=== PATIENT | male | born 1965 | race Caucasian/White ===

== ENCOUNTER 2018-03-22 13:20 | Observation (INO) | payer OTHER ==
[~2018-03-22] VITALS: Ht 188 cm; Wt 98.2 kg
[2018-03-22 14:14] VITALS: BP 128/88
[2018-03-22] MEDS ORDERED: ACETAMINOPHEN 500 MG TABLET PO PRN (14:15)
[2018-03-22] MEDS ORDERED: ONDANSETRON PF 4 MG/2 ML VIAL. IV PRN (14:15)
[2018-03-22 14:20] LABS: BASO # 0.1 x10^3/uL (0.0-0.2); BASO % 1 % (0-3); EOS # 0.1 x10^3/uL (0.0-0.7); EOS % 1 % (0-3); HEMATOCRIT 48.1 % (39.0-53.0); HEMOGLOBIN 16.6 g/dL (13.0-17.5); LYMPH # 1.4 x10^3/uL (1.0-4.8); LYMPH % 19 % (24-48); MEAN CORPUSCULAR HEMOGLOBIN 31 pg (25-35); MEAN CORPUSCULAR HGB CONC 35 g/dL (31-37); MEAN CORPUSCULAR VOLUME 89 fL (79-100); MONO # 0.5 x10^3/uL (0.0-1.1); MONO % 7 % (0-9); NEUT # 5.2 x10^3uL (1.8-7.7); NEUT % 72 % (31-73); PLATELET COUNT 280 x10^3/uL (140-400); RED BLOOD COUNT 5.41 x10^6/uL (4.30-5.70); RED CELL DISTRIBUTION WIDTH 13.3 % (11.5-14.5); WHITE BLOOD COUNT 7.2 x10^3/uL (4.0-11.0)
[2018-03-22 14:26] LABS: ALBUMIN 3.1 g/dL (3.4-5.0); ALBUMIN/GLOBULIN RATIO 0.7 (1.0-1.7); CALCIUM 9.3 mg/dL (8.5-10.1); CREATININE 1.1 mg/dL (0.7-1.3); TOTAL BILIRUBIN 0.8 mg/dL (0.2-1.0); TOTAL PROTEIN 7.5 g/dL (6.4-8.2)
[2018-03-22] MEDS: IV NORMAL SALINE 1,000ML 1,000 ML IV SCH (14:49)
[2018-03-22 15:50] LABS: BACTERIA,URINE 0 /HPF (0-FEW); BILIRUBIN,URINE NEG (NEG); CLARITY,URINE CLEAR; COLOR,URINE YELLOW; GLUCOSE,URINE NEG (NEG); NITRITE,URINE NEG (NEG); SQUAMOUS EPITHELIAL CELL,UR FEW /LPF; UROBILINOGEN,URINE 0.2 mg/dL (0.2 mg/dL); WBC,URINE 0 /HPF (0-4)
--- NOTE | 2018-03-22 16:47 | NUR ---
The patient, LOREN WADE, 52 y/o, M admitted by RADHA MENDOZA MD, was given written information regarding hospital policies, unit procedures and contact persons. Valuables were checked and left in room. Patient ambulated to room 119 with , oriented to room and call light system. Patient complains of Abdominal pain x 2 weeks, loss of appetite and epigastric pain. Patient states he had a CT scan at [place] that showed Diverticulitis. Patients labs and IV obtained. Orders received from physician. Patient able to verbalize POC and understands instructions.
[2018-03-22] MEDS: CIPROFLOXACIN 400MG PREMIX 200 ML IV SCH (18:38)
[2018-03-22 19:00] VITALS: BP 112/74
[2018-03-22 23:06] VITALS: BP 134/64
[2018-03-23] MEDS: IV NORMAL SALINE 1,000ML 1,000 ML IV SCH ×2 (02:45→12:49)
[2018-03-23 05:58] LABS: BASO # 0.1 x10^3/uL (0.0-0.2); BASO % 1 % (0-3); EOS # 0.2 x10^3/uL (0.0-0.7); EOS % 3 % (0-3); HEMATOCRIT 41.8 % (39.0-53.0); HEMOGLOBIN 14.4 g/dL (13.0-17.5); LYMPH # 1.5 x10^3/uL (1.0-4.8); LYMPH % 24 % (24-48); MEAN CORPUSCULAR HEMOGLOBIN 31 pg (25-35); MEAN CORPUSCULAR HGB CONC 35 g/dL (31-37); MEAN CORPUSCULAR VOLUME 89 fL (79-100); MONO # 0.6 x10^3/uL (0.0-1.1); MONO % 9 % (0-9); NEUT # 3.9 x10^3uL (1.8-7.7); NEUT % 63 % (31-73); PLATELET COUNT 238 x10^3/uL (140-400); RED BLOOD COUNT 4.71 x10^6/uL (4.30-5.70); RED CELL DISTRIBUTION WIDTH 13.2 % (11.5-14.5); WHITE BLOOD COUNT 6.2 x10^3/uL (4.0-11.0)
[2018-03-23 06:02] LABS: CALCIUM 8.6 mg/dL (8.5-10.1); CREATININE 0.9 mg/dL (0.7-1.3); GFR 88.3; POTASSIUM 3.7 mmol/L (3.5-5.1)
[2018-03-23 06:11] VITALS: BP 102/66
[2018-03-23] MEDS: CIPROFLOXACIN 400MG PREMIX 200 ML IV SCH (07:55)
--- NOTE | 2018-03-23 10:12 | NUR ---
Pt is alert and oriented x4. No complaints before breakfast, slight pain after breakfast. Bed low and locked. IVF infusing. Will continue to monitor.
[2018-03-23 11:09] VITALS: BP 113/75
[2018-03-23 14:20] VITALS: BP 149/77
[2018-03-23] MEDS ORDERED: ZOLPIDEM 5 MG TABLET. PO PRN (15:00)
[2018-03-23 19:27] VITALS: BP 123/78
--- NOTE | 2018-03-23 19:48 | PN ---
DATE: SUBJECTIVE: A 52-year-old gentleman with diverticulitis, severe abdominal pain, came in. The patient is resting fairly comfortably, says he is feeling a little bit better. CT scan showed diverticulitis and severe abdominal pain. As a result of this, the patient continues on IV antibiotic therapy, aggressive pulmonary bedside commode and so forth in any case. PHYSICAL EXAMINATION: VITAL SIGNS: Include blood pressure 150/70, respiratory rate 20, pulse 50, afebrile. LUNGS: Diminished, but clear. CARDIOVASCULAR: Regular sinus rhythm. ABDOMEN: Soft, diffuse tenderness in the right mid quadrant area. Some guarding, no rebounding, positive bowel sounds. EXTREMITIES: No clubbing, cyanosis, no edema. IMPRESSION: Diverticulitis, apparently fairly strong family history of such, moderate protein malnutrition, diverticulitis. PLAN: The patient will be continued on IV antibiotic therapy. Hopefully, ready for transfer over to oral antibiotics in the morning and hopefully discharge. RADHA MENDOZA MD DR: JEANETTE/natan JOB#: [id number] / [id number]
[2018-03-23] MEDS: LACTOBACILLUS RHAMNOSUS GG 1 CAPSULE. PO SCH (21:46)
[2018-03-23 22:39] VITALS: BP 115/74
[2018-03-24 05:55] VITALS: BP 97/67
[2018-03-24] MEDS: LACTOBACILLUS RHAMNOSUS GG 1 CAPSULE. PO SCH (08:33)
[2018-03-24] MEDS ORDERED: METR500T PO (09:15)
[2018-03-24] MEDS ORDERED: LEVO500T59 PO (09:15)
[2018-03-24] MEDS ORDERED: LACT1CAP19 PO (09:15)
[2018-03-24 10:22] VITALS: BP 114/72
[2018-03-24] MEDS ORDERED: levoFLOXacin 750 MG TABLET PO ONE (10:30)
--- NOTE | 2018-03-24 12:08 | DS ---
DATE OF DISCHARGE: HOSPITAL COURSE: A 52-year-old male admitted with abdominal pain. CT scan demonstrated a diverticulitis. As a result of this, the patient was placed on IV antibiotic therapy. He made excellent progress during the rest of his hospitalization, still had some mild tenderness, but markedly improved. The patient will be discharged on home antibiotics, told to stay on low-fiber diet and then high-fiber after that up to 2 weeks. He will be seen by GI doctor to make further evaluation on him. IMPRESSION: Diverticulitis, abdominal pain. PLAN: As above. Moderate protein malnutrition as well. RADHA MENDOZA MD DR: JEANETTE/natan JOB#: [id number] / [id number]
--- NOTE | 2018-03-24 13:06 | NUR ---
Discharge Note: LOREN WADE [facility] Discharge instructions and discharge home medications reviewed with PATIENT and a copy given. All questions have been answered and understanding verbalized. The following instructions and handouts were given: MEDICATIONS, FOLLOW UP APPOINTMENT AND INSTRUCTIONS, AND EDUCATIONAL HANDOUTS AND PRESCRIPTIONS. Discontinued lines and drains: IV DISCONTINUED WITH NO COMPLICATIONS. Patient discharged to HOME with & DAUGHTER via PRIVATE VEHICLE.
== END 2018-03-24 13:10 | disposition home or self-care (01) ==
LOC: INTOOBSV 13:21 → 1 SOUTH 13:21
PROVIDERS: ADMIT Family Medicine; ATTEND Family Medicine
DX: K57.80 Diverticulitis of intestine, part unspecified, with perforation and abscess without bleeding (principal); R31.0 Gross hematuria; N39.0 Urinary tract infection, site not specified
CPT/HCPCS: 36415; 80048; 80053; 81001; 83605; 85025; 87086; 96361; 96365; 96366; 96367; 96375; 96376; G0378; G0379; J0744; J1956; J2405; J3010; J3490; J7030